=== PATIENT | male | born 1995 | race Caucasian/White ===

== ENCOUNTER 2024-04-24 19:14 | Emergency (ER) | payer OTHER ==
[~2024-04-24] VITALS: Ht 185.4 cm; Wt 72.6 kg
[2024-04-24 19:40] VITALS: BP_SYST 126; PULSE 79; RESP 18; TEMP 98.7; O2SAT 97
[2024-04-24 20:31] VITALS: BP_SYST 126; PULSE 79; RESP 18; TEMP 98.7; O2SAT 97
== END 2024-04-24 20:31 | disposition home or self-care (01) ==
LOC: SED 19:14
DX: M25.511 Pain in right shoulder (principal); R07.89 Other chest pain
CPT/HCPCS: 73000; 99283